=== PATIENT | male | born 1995 | race Two or more races ===

== ENCOUNTER 2022-08-13 12:56 | Emergency (ER) | payer BC ==
[~2022-08-13] VITALS: Ht 172.7 cm; Wt 64.9 kg
[2022-08-13 13:08] VITALS: BP 102/68
[2022-08-13] MEDS ORDERED: AMOX-430 PO (13:16)
[2022-08-13] MEDS ORDERED: TDAP [DIPH/PERTUSSIS/TET] 0.5 ML VIAL IM ONE (13:30)
== END 2022-08-13 14:22 | disposition home or self-care (01) ==
LOC: ER 12:56
DX: S61.251A Open bite of left index finger without damage to nail, initial encounter (principal); Z79.899 Other long term (current) drug therapy; W53.21XA Bitten by squirrel, initial encounter; Y93.89 Activity, other specified; Y92.89 Other specified places as the place of occurrence of the external cause; Y99.8 Other external cause status